=== PATIENT | male | born 1990 | race Hispanic/Latino ===

== ENCOUNTER 2022-09-01 14:49 | Inpatient (IN) | payer OTHER ==
[~2022-09-01] VITALS: Ht 172.7 cm; Wt 94.1 kg
[2022-09-01] MEDS ORDERED: VANCOMYCIN PROTOCOL PER PHARMACY IV SCH ×2 (16:30)
[2022-09-01] MEDS ORDERED: MAGNESIUM 2GM PREMIX 50ML 50 ML IV PRN (16:30)
[2022-09-01] MEDS ORDERED: MORPHINE 2 MG SYG IVP PRN (16:30)
[2022-09-01] MEDS ORDERED: POTASSIUM CHLORIDE 20MEQ/100ML 100 ML IV PRN (16:30)
[2022-09-01] MEDS ORDERED: ACETAMINOPHEN 325 MG TAB PO PRN (16:30)
[2022-09-01] MEDS ORDERED: POTASSIUM CHLORIDE 10% ELIXIR 20 MEQ/15 ML UDCUP PO PRN (16:30)
[2022-09-01] MEDS ORDERED: ACETAMINOPHEN WITH CODEINE 1 TAB TAB PO PRN (16:30)
[2022-09-01] MEDS ORDERED: 0.9%NACL 100ML 100 ML ONE (16:52)
[2022-09-01] MEDS: 0.9%NACL 1000ML 1,000 ML IV SCH (16:56)
[2022-09-01] MEDS: CEFEPIME HCL 2 GM VIAL IVPB SCH (16:56)
[2022-09-01 16:58] LABS: BASOPHILS % (AUTO) 0.3 % (0.0-5.0); EOSINOPHILS % (AUTO) 0.3 % (0.0-8.0); HEMATOCRIT 23.8 % (42-54); LYMPHOCYTES % (AUTO) 12.6 % (21.0-51.0); MEAN CORPUSCULAR HEMOGLOBIN 23.8 pg (27.0-33.0); MEAN CORPUSCULAR HGB CONC 32.4 g/dL (32.0-36.0); MEAN CORPUSCULAR VOLUME 73.7 fL (79-99); NEUTROPHILS % (AUTO) 74.9 % (40.0-77.0); PLATELET COUNT (AUTO) 611 K/uL (130-400); RED BLOOD CELL COUNT(AUTO) 3.23 MIL/uL (4.50-6.20); WHITE BLOOD COUNT (AUTO) 10.3 K/uL (4.8-10.8)
[2022-09-01 17:11] LABS: ALBUMIN 2.1 g/dL (3.5-5.0); TOTAL PROTEIN, SERUM 7.3 g/dL (6.0-8.3)
[2022-09-01] MEDS ORDERED: COMPOUND IV REFRIGERATED 1 EACH IVSOLN MISC PRN (20:00)
[2022-09-01] MEDS: VANCOMYCIN 1.25 GM/250 ML BAG 250 ML IV SCH (21:55)
[2022-09-01 22:06] VITALS: BP 138/84
[2022-09-01] MEDS ORDERED: CLIN-141 PO (22:40)
[2022-09-01] MEDS ORDERED: DULO60CA64 PO (22:40)
[2022-09-01] MEDS ORDERED: METF-526 PO (22:40)
[2022-09-01] MEDS ORDERED: INSLAN SQ (22:40)
[2022-09-01] MEDS ORDERED: PREG150C PO (22:40)
[2022-09-01] MEDS ORDERED: METO25TA6 PO (22:40)
[2022-09-02] VITALS (21 sets, daily range): BP systolic 98–132; BP diastolic 60–76
[2022-09-02] MEDS: CEFEPIME HCL 2 GM VIAL IVPB SCH ×3 (02:37→16:49)
[2022-09-02] MEDS: 0.9%NACL 1000ML 1,000 ML IV SCH ×2 (04:08→16:50)
[2022-09-02 04:57] LABS: BASOPHILS % (AUTO) 0.2 % (0.0-5.0); EOSINOPHILS % (AUTO) 1.7 % (0.0-8.0); HEMATOCRIT 22.2 % (42-54); LYMPHOCYTES % (AUTO) 35.6 % (21.0-51.0); MEAN CORPUSCULAR HEMOGLOBIN 24.2 pg (27.0-33.0); MEAN CORPUSCULAR HGB CONC 32.4 g/dL (32.0-36.0); MEAN CORPUSCULAR VOLUME 74.5 fL (79-99); MONOCYTES % (AUTO) 15.9 % (3.0-13.0); NEUTROPHILS % (AUTO) 45.2 % (40.0-77.0); PLATELET COUNT (AUTO) 641 K/uL (130-400); RED BLOOD CELL COUNT(AUTO) 2.98 MIL/uL (4.50-6.20); RED CELL DISTRIBUTION WIDTH 14.3 % (11.0-15.5); WHITE BLOOD COUNT (AUTO) 5.9 K/uL (4.8-10.8)
[2022-09-02 05:15] LABS: CREATININE 0.9 mg/dL (0.5-1.5); POTASSIUM 3.3 mmol/L (3.5-5.1); TOTAL PROTEIN, SERUM 6.8 g/dL (6.0-8.3)
[2022-09-02] MEDS: VANCOMYCIN 1.25 GM/250 ML BAG 250 ML IV SCH ×2 (11:54→21:00)
[2022-09-02] MEDS: INSULIN HUMULIN R 100 UNIT/ML 3ML SQ SCH ×2 (16:30→19:32)
[2022-09-02] MEDS ORDERED: MIDAZOLAM HCL 1 MG/ML 2ML VIAL ONE (20:33)
[2022-09-02] MEDS ORDERED: FENTANYL CITRATE PF 50 MCG/1 ML 2ML VIAL ONE ×2 (20:33→20:54)
[2022-09-02] MEDS ORDERED: PROPOFOL 10 MG/ML 20ML VIAL IV ONE (20:33)
[2022-09-02] MEDS ORDERED: ROCURONIUM 10MG/1ML SYR 10 MG/ML ML ONE (20:43)
[2022-09-03] VITALS (7 sets, daily range): BP systolic 97–142; BP diastolic 59–70
[2022-09-03] MEDS: CEFEPIME HCL 2 GM VIAL IVPB SCH ×4 (00:11→23:55)
[2022-09-03] MEDS: MORPHINE 2 MG SYG IVP PRN (05:05)
[2022-09-03 05:09] LABS: BASOPHILS % (AUTO) 0.2 % (0.0-5.0); LYMPHOCYTES % (AUTO) 21.6 % (21.0-51.0); MEAN CORPUSCULAR HGB CONC 31.1 g/dL (32.0-36.0); MEAN CORPUSCULAR VOLUME 77.2 fL (79-99); MONOCYTES % (AUTO) 7.5 % (3.0-13.0); NEUTROPHILS % (AUTO) 65.5 % (40.0-77.0); NUCLEATED RED BLOOD CELLS 0.2 % (0.0-0.19); PLATELET COUNT (AUTO) 586 K/uL (130-400); RED BLOOD CELL COUNT(AUTO) 2.54 MIL/uL (4.50-6.20); RED CELL DISTRIBUTION WIDTH 14.3 % (11.0-15.5); WHITE BLOOD COUNT (AUTO) 8.6 K/uL (4.8-10.8)
[2022-09-03 05:13] LABS: HEMATOCRIT 19.6 % (42-54)
[2022-09-03 05:50] LABS: ALBUMIN 1.8 g/dL (3.5-5.0); CREATININE 0.9 mg/dL (0.5-1.5); POTASSIUM 3.9 mmol/L (3.5-5.1); TOTAL PROTEIN, SERUM 6.3 g/dL (6.0-8.3)
[2022-09-03] MEDS: ONDANSETRON 4MG INJ IVP PRN ×2 (06:12→16:42)
[2022-09-03] MEDS: INSULIN HUMULIN R 100 UNIT/ML 3ML SQ SCH ×4 (06:45→20:57)
[2022-09-03] MEDS: 0.9%NACL 1000ML 1,000 ML IV SCH ×2 (08:05→22:14)
[2022-09-03] MEDS: HYDROCODONE/ACETAMINOPHEN 5/325 MG TAB PO PRN ×3 (10:23→20:10)
[2022-09-03] MEDS ORDERED: VANCOMYCIN 1.25 GM/250 ML BAG 250 ML IV SCH (13:00)
[2022-09-04 00:38] VITALS: BP 124/59
[2022-09-04 04:00] VITALS: BP 116/68
[2022-09-04 06:11] LABS: BASOPHILS % (AUTO) 0.6 % (0.0-5.0); EOSINOPHILS % (AUTO) 2.1 % (0.0-8.0); HEMATOCRIT 21.2 % (42-54); LYMPHOCYTES % (AUTO) 26.4 % (21.0-51.0); MEAN CORPUSCULAR HEMOGLOBIN 25.4 pg (27.0-33.0); MEAN CORPUSCULAR HGB CONC 32.1 g/dL (32.0-36.0); MEAN CORPUSCULAR VOLUME 79.1 fL (79-99); MONOCYTES % (AUTO) 8.4 % (3.0-13.0); NEUTROPHILS % (AUTO) 54.8 % (40.0-77.0); NUCLEATED RED BLOOD CELLS 0.6 % (0.0-0.19); PLATELET COUNT (AUTO) 663 K/uL (130-400); RED BLOOD CELL COUNT(AUTO) 2.68 MIL/uL (4.50-6.20); RED CELL DISTRIBUTION WIDTH 14.6 % (11.0-15.5); WHITE BLOOD COUNT (AUTO) 7.1 K/uL (4.8-10.8)
[2022-09-04 06:33] LABS: ALBUMIN 1.8 g/dL (3.5-5.0); CREATININE 0.9 mg/dL (0.5-1.5); POTASSIUM 3.6 mmol/L (3.5-5.1); TOTAL PROTEIN, SERUM 6.1 g/dL (6.0-8.3)
[2022-09-04 06:45] LABS: % IRON SATURATION 28.1 % (30-44)
[2022-09-04 06:48] LABS: INR 1.05 (0.85-1.15); PROTHROMBIN TIME 11.4 SEC (9.6-11.6)
[2022-09-04 06:49] LABS: PARTIAL THROMBOPLASTIN TIME 26.5 SEC (26.3-35.5)
[2022-09-04 06:52] LABS: HEMATOCRIT 22.7 % (42-54)
[2022-09-04] MEDS: INSULIN HUMULIN R 100 UNIT/ML 3ML SQ SCH ×4 (07:06→20:40)
[2022-09-04 08:00] VITALS: BP 125/69
[2022-09-04 08:28] LABS: RETICULOCYTE % (AUTO) 1.81 % (0.42-2.23)
[2022-09-04] MEDS: CEFEPIME HCL 2 GM VIAL IVPB SCH ×2 (10:03→16:53)
[2022-09-04] MEDS: HYDROCODONE/ACETAMINOPHEN 5/325 MG TAB PO PRN (11:00)
[2022-09-04] MEDS: IRON SUCROSE COMPLEX 300 MG in 0.9% NACL 250ML 250 ML IV SCH (11:01)
[2022-09-04] MEDS: 0.9%NACL 1000ML 1,000 ML IV SCH (11:18)
[2022-09-04 12:00] VITALS: BP 133/75
[2022-09-04] MEDS ORDERED: COMPOUND IV MISC 1 EACH IVSOLN MISC PRN (12:00)
[2022-09-04] MEDS ORDERED: VANCOMYCIN 1.75 GM/250 ML BAG 250 ML IV SCH ×2 (13:30→14:00)
[2022-09-04 16:00] VITALS: BP 124/69
[2022-09-04 20:00] VITALS: BP 114/64
[2022-09-04] MEDS: MORPHINE 2 MG SYG IVP PRN (20:25)
[2022-09-04] MEDS: ONDANSETRON 4MG INJ IVP PRN (20:25)
[2022-09-04 21:44] LABS: HEMATOCRIT 24.4 % (42-54)
[2022-09-04] MEDS: VANCOMYCIN 1G/250ML KIT 250 ML IV SCH (22:20)
[2022-09-05] VITALS (28 sets, daily range): BP systolic 109–135; BP diastolic 63–84
[2022-09-05] MEDS: CEFEPIME HCL 2 GM VIAL IVPB SCH ×3 (00:36→16:51)
[2022-09-05] MEDS: MORPHINE 2 MG SYG IVP PRN ×3 (00:36→22:19)
[2022-09-05] MEDS: 0.9%NACL 1000ML 1,000 ML IV SCH ×2 (00:36→14:49)
[2022-09-05 05:45] LABS: BASOPHILS % (AUTO) 0.6 % (0.0-5.0); EOSINOPHILS % (AUTO) 1.9 % (0.0-8.0); HEMATOCRIT 24.4 % (42-54); LYMPHOCYTES % (AUTO) 21.2 % (21.0-51.0); MEAN CORPUSCULAR HGB CONC 32.4 g/dL (32.0-36.0); MEAN CORPUSCULAR VOLUME 80.3 fL (79-99); NEUTROPHILS % (AUTO) 60.9 % (40.0-77.0); NUCLEATED RED BLOOD CELLS 0.4 % (0.0-0.19); PLATELET COUNT (AUTO) 642 K/uL (130-400); RED BLOOD CELL COUNT(AUTO) 3.04 MIL/uL (4.50-6.20); RED CELL DISTRIBUTION WIDTH 14.6 % (11.0-15.5)
[2022-09-05 06:15] LABS: CREATININE 0.8 mg/dL (0.5-1.5); POTASSIUM 3.6 mmol/L (3.5-5.1); TOTAL PROTEIN, SERUM 6.3 g/dL (6.0-8.3)
[2022-09-05] MEDS: VANCOMYCIN 1G/250ML KIT 250 ML IV SCH ×3 (06:22→22:20)
[2022-09-05] MEDS ORDERED: PROPOFOL 10 MG/ML 20ML VIAL IV ONE (07:03)
[2022-09-05] MEDS ORDERED: MIDAZOLAM HCL 1 MG/ML 2ML VIAL ONE (07:03)
[2022-09-05] MEDS ORDERED: LIDOCAINE PF 100MG/5ML (2%) SYRINGE 5ML ONE (07:03)
[2022-09-05] MEDS ORDERED: ROCURONIUM 10MG/1ML SYR 10 MG/ML ML ONE (07:04)
[2022-09-05] MEDS ORDERED: FENTANYL CITRATE PF 50 MCG/1 ML 5ML AMP IV ONE (07:04)
[2022-09-05] MEDS: INSULIN HUMULIN R 100 UNIT/ML 3ML SQ SCH ×4 (07:18→21:00)
[2022-09-05] MEDS ORDERED: ONDANSETRON 4MG INJ ONE (07:48)
[2022-09-05] MEDS ORDERED: KETOROLAC 30MG VIAL (30MG/ML) ONE (07:49)
[2022-09-05] MEDS: IRON SUCROSE COMPLEX 300 MG in 0.9% NACL 250ML 250 ML IV SCH (09:55)
[2022-09-05] MEDS: ONDANSETRON 4MG INJ IVP PRN ×2 (11:39→22:23)
[2022-09-05] MEDS: HYDROCODONE/ACETAMINOPHEN 5/325 MG TAB PO PRN (14:57)
[2022-09-06] VITALS (7 sets, daily range): BP systolic 114–150; BP diastolic 62–79
[2022-09-06] MEDS: CEFEPIME HCL 2 GM VIAL IVPB SCH ×3 (00:30→16:38)
[2022-09-06] MEDS: 0.9%NACL 1000ML 1,000 ML IV SCH ×2 (03:16→16:35)
[2022-09-06] MEDS: VANCOMYCIN 1G/250ML KIT 250 ML IV SCH ×2 (06:00→18:17)
[2022-09-06] MEDS: INSULIN HUMULIN R 100 UNIT/ML 3ML SQ SCH ×4 (06:43→21:02)
[2022-09-06] MEDS: IRON SUCROSE COMPLEX 300 MG in 0.9% NACL 250ML 250 ML IV SCH (08:55)
[2022-09-06] MEDS: HEPARIN 5,000 UNIT VIAL SQ SCH ×2 (12:25→23:13)
[2022-09-06] MEDS: ONDANSETRON 4MG INJ IVP PRN ×2 (18:46→22:22)
[2022-09-06] MEDS: MORPHINE 2 MG SYG IVP PRN ×2 (18:47→22:23)
[2022-09-07] MEDS: CEFEPIME HCL 2 GM VIAL IVPB SCH ×3 (00:06→17:38)
[2022-09-07 04:02] LABS: HEMATOCRIT 24.8 % (42-54); MEAN CORPUSCULAR HEMOGLOBIN 25.9 pg (27.0-33.0); MEAN CORPUSCULAR HGB CONC 32.3 g/dL (32.0-36.0); MEAN CORPUSCULAR VOLUME 80.3 fL (79-99); RED BLOOD CELL COUNT(AUTO) 3.09 MIL/uL (4.50-6.20); RED CELL DISTRIBUTION WIDTH 15.9 % (11.0-15.5); WHITE BLOOD COUNT (AUTO) 7.1 K/uL (4.8-10.8)
[2022-09-07] MEDS: 0.9%NACL 1000ML 1,000 ML IV SCH ×2 (04:21→22:12)
[2022-09-07 04:25] LABS: ALBUMIN 2.1 g/dL (3.5-5.0); CREATININE 0.8 mg/dL (0.5-1.5); POTASSIUM 3.3 mmol/L (3.5-5.1); TOTAL PROTEIN, SERUM 6.1 g/dL (6.0-8.3)
[2022-09-07 04:30] VITALS: BP 123/73
[2022-09-07] MEDS: KCL 20 MEQ ERTAB PO PRN ×2 (04:35→05:55)
[2022-09-07] MEDS: VANCOMYCIN 1G/250ML KIT 250 ML IV SCH (05:54)
[2022-09-07] MEDS: INSULIN HUMULIN R 100 UNIT/ML 3ML SQ SCH ×4 (06:07→22:23)
[2022-09-07 07:40] VITALS: BP 119/67
[2022-09-07 08:00] VITALS: BP 123/78
[2022-09-07] MEDS: HYDROCODONE/ACETAMINOPHEN 5/325 MG TAB PO PRN ×2 (11:12→22:18)
[2022-09-07 12:00] VITALS: BP 119/67
[2022-09-07] MEDS ORDERED: PANTOPRAZOLE 40 MG/VIAL IVP ONE (13:00)
[2022-09-07] MEDS: HEPARIN 5,000 UNIT VIAL SQ SCH ×2 (14:10→22:21)
[2022-09-07 16:00] VITALS: BP 116/64
[2022-09-07 20:16] VITALS: BP 115/69
[2022-09-08] MEDS: CEFEPIME HCL 2 GM VIAL IVPB SCH ×2 (00:45→09:40)
[2022-09-08 01:17] VITALS: BP 128/76
[2022-09-08 04:53] VITALS: BP 131/81
[2022-09-08] MEDS: INSULIN HUMULIN R 100 UNIT/ML 3ML SQ SCH ×3 (06:57→16:50)
[2022-09-08 08:00] VITALS: BP 128/80
[2022-09-08] MEDS ORDERED: LACTULOSE 20 GM/30 ML UDCUP PO ONE (10:00)
[2022-09-08] MEDS ORDERED: LEVO750T68 PO (11:00)
[2022-09-08 12:00] VITALS: BP 116/74
[2022-09-08] MEDS: HEPARIN 5,000 UNIT VIAL SQ SCH (12:32)
[2022-09-08 16:00] VITALS: BP 110/70
[2022-09-08] MEDS ORDERED: HONEY 1 APPL/ML TUBE TP SCH (16:00)
== END 2022-09-08 16:50 | disposition home or self-care (01) | DRG 603 ==
LOC: EDH 14:49 → EDSEX 14:49 → OBSVTOIN 14:50 → DIRECT 14:50 → 4BH 22:06
PROVIDERS: ADMIT Hospitalist; ATTEND Hospitalist
PROC: 0J9P0ZZ Drainage of Left Lower Leg Subcutaneous Tissue and Fascia, Open Approach (ICD-10-PCS; principal; 2022-09-02 20:32)
PROC: 30233N1 Transfusion of Nonautologous Red Blood Cells into Peripheral Vein, Percutaneous Approach (ICD-10-PCS; 2022-09-03)
PROC: 0HQLXZZ Repair Left Lower Leg Skin, External Approach (ICD-10-PCS; 2022-09-07)
DX: L03.116 Cellulitis of left lower limb (principal); Z20.822 Contact with and (suspected) exposure to COVID-19; E11.41 Type 2 diabetes mellitus with diabetic mononeuropathy; L02.416 Cutaneous abscess of left lower limb; D50.0 Iron deficiency anemia secondary to blood loss (chronic); B96.1 Klebsiella pneumoniae [K. pneumoniae] as the cause of diseases classified elsewhere; E66.09 Other obesity due to excess calories; I10 Essential (primary) hypertension; Z82.3 Family history of stroke; Z82.49 Family history of ischemic heart disease and other diseases of the circulatory system; Z83.3 Family history of diabetes mellitus; Z85.038 Personal history of other malignant neoplasm of large intestine; Z87.891 Personal history of nicotine dependence; Z68.31 Body mass index [BMI] 31.0-31.9, adult
CPT/HCPCS: 36415; 36430; 73700; 80053; 80202; 82607; 82728; 82948; 83036; 84132; 84145; 85014; 85018; 85025; 85027; 85610; 85730; 86850; 86900; 86901; 86923; 87070; 87076; 87077; 87186; 87635; 97039; C9113; G0378; J0692; J1644; J1756; J1815; J1885; J2001; J2250; J2405; J2704; J3010; J3370; J7050; P9016